=== PATIENT | female | born 1985 | race Caucasian/White ===

== ENCOUNTER 2016-12-16 14:16 | Inpatient (IN) | payer SELFPAY ==
[~2016-12-16] VITALS: Ht 157.5 cm; Wt 61.0 kg
[2016-12-16] MEDS ORDERED: ACETAMINOPHEN 325MG TABLET PO STA (16:46)
[2016-12-16] MEDS ORDERED: SODIUM CHLORIDE 0.9% 1,000 ML IV ONE (16:46)
[2016-12-16 17:15] LABS: CHLORIDE 99 mEq/L (98-107)
[2016-12-16 17:16] LABS: BASOPHILS % 0.3 % (0.0-2.0); HEMATOCRIT. 33.7 % (36.0-48.0); LYMPHOCYTES % 7.7 % (20.0-50.0); MEAN CORPUSCULAR HEMOGLOBIN 24.9 pg (28.0-32.0); MEAN CORPUSCULAR VOLUME 76.2 fL (81.0-99.0); MEAN PLATELET VOLUME 7.6 fl (7.4-10.4); MONOCYTES % 8.3 % (2.0-8.0); NEUTROPHILS % 83.7 % (40.0-76.0); PLATELET 264 x1000/uL (130-400); RED BLOOD CELL COUNT 4.43 mill/uL (4.2-5.4)
[2016-12-16 17:18] LABS: CARBON DIOXIDE 25 mEq/L (21-32); PROTHROMBIN TIME 10.7 sec
[2016-12-16 17:19] LABS: HCG SCREEN POSITIVE
[2016-12-16 18:07] LABS: CLARITY URINE CLEAR (CLEAR); COLOR URINE YELLOW (YELLOW); GLUCOSE URINE NEGATIVE (NEGATIVE); KETONES URINE 4+ (NEGATIVE); LEUKOCYTE ESTERASE URINE TRACE (NEGATIVE); NITRITE URINE NEGATIVE (NEGATIVE); OCCULT BLOOD URINE 1+ (NEGATIVE); PH URINE 8.5 (4.5-8.0); PROTEIN URINE 1+ (NEGATIVE); SPECIFIC GRAVITY URINE 1.016 (1.005-1.030)
[2016-12-16] MEDS ORDERED: CEFTRIAXONE 1 G PREMIX 50 ML IV ONE (19:15)
[2016-12-16] MEDS ORDERED: POTASSIUM CHLORIDE 20MEQ TABLET SR PO ONE (21:15)
[2016-12-17] MEDS ORDERED: DIPHENHYDRAMINE 25MG CAPSULE PO PRN
[2016-12-17] MEDS ORDERED: HYDROMORPHONE HCL/PF 2MG/ML CPJ IV ONE ×2
[2016-12-17] MEDS ORDERED: ONDANSETRON HCL 4MG/2ML VIAL IM SCH
[2016-12-17] MEDS ORDERED: ACETAMINOPHEN 500MG TABLET PO PRN
[2016-12-17] MEDS ORDERED: CEFAZOLIN 2,000 MG in DEXT 5% WATER 100 ML IV NR (03:42)
[2016-12-17 04:50] VITALS: BP 112/70
[2016-12-17] MEDS ORDERED: SODIUM CHL 0.45% + KCL 20MEQ/L 1,000 ML IV SCH ×2 (06:00)
[2016-12-17] MEDS: SODIUM CHLORIDE 0.9% 1,000 ML IV SCH ×3 (07:08→23:58)
[2016-12-17 07:10] VITALS: BP 109/67
[2016-12-17 07:34] LABS: HEPATITIS B SURFACE ANTIGEN NEGATIVE; RUBELLA IGG 145.5 IU/mL (4.99-10)
[2016-12-17 08:36] LABS: CHLORIDE 102 mEq/L (98-107)
[2016-12-17 08:38] LABS: BASOPHILS % 0.2 % (0.0-2.0); EOSINOPHILS % 0.1 % (0.0-5.0); HEMATOCRIT. 29.5 % (36.0-48.0); HEMOGLOBIN. 9.6 g/dL (12.0-16.0); LYMPHOCYTES % 11.3 % (20.0-50.0); MEAN CORPUSCULAR VOLUME 76.7 fL (81.0-99.0); MONOCYTES % 11.4 % (2.0-8.0); PLATELET 226 x1000/uL (130-400); RED BLOOD CELL COUNT 3.84 mill/uL (4.2-5.4); RED CELL DISTRIBUTION WIDTH 18.3 % (11.6-14.6)
[2016-12-17 08:41] LABS: CARBON DIOXIDE 22 mEq/L (21-32)
[2016-12-17 08:54] LABS: *AMPHETAMINES SCREEN URINE NEGATIVE (NEGATIVE); *BARBITURATES SCREEN URINE NEGATIVE (NEGATIVE); *BENZODIAZEPINES SCREEN URINE NEGATIVE (NEGATIVE); *COCAINE SCREEN URINE NEGATIVE (NEGATIVE); CANNABINOID URINE SCREEN NEGATIVE (NEGATIVE); METHADONE URINE SCREEN NEGATIVE (NEGATIVE); OPIATES URINE SCREEN NEGATIVE (NEGATIVE); PHENCYCLIDINE URINE SCREEN NEGATIVE (NEGATIVE)
[2016-12-17] MEDS ORDERED: PRENATAL VIT/FE FUMARATE/FA TABLET PO SCH (09:00)
[2016-12-17] MEDS ORDERED: FERROUS SULFATE 325MG TABLET PO SCH (09:00)
[2016-12-17] MEDS ORDERED: ONDANSETRON HCL 4MG/2ML VIAL IM PRN (09:30)
[2016-12-17] MEDS: HYDROMORPHONE HCL/PF 2MG/ML CPJ IV PRN ×2 (09:47→19:57)
[2016-12-17] MEDS: ACETAMINOPHEN 500MG TABLET PO PRN ×2 (09:47→23:35)
[2016-12-17] MEDS: PRENATAL VIT/FE FUMARATE/FA TABLET PO SCH (09:55)
[2016-12-17] MEDS: FERROUS SULFATE 325MG TABLET PO SCH ×2 (09:56→17:59)
[2016-12-17 12:00] VITALS: BP 100/55
[2016-12-17] MEDS ORDERED: CEFAZOLIN 2,000 MG in DEXT 5% WATER 100 ML IV SCH ×3 (14:00)
[2016-12-17] MEDS: CEFAZOLIN 2,000 MG in DEXT 5% WATER 100 ML IV SCH ×2 (14:44→21:51)
[2016-12-17 16:00] VITALS: BP 98/59
[2016-12-17 19:55] VITALS: BP 114/68
[2016-12-17] MEDS ORDERED: DOCUSATE SODIUM 100MG CAPSULE PO SCH (21:00)
[2016-12-17 23:30] VITALS: BP 101/67
[2016-12-18 04:00] VITALS: BP 94/79
[2016-12-18] MEDS ORDERED: SODIUM CHLORIDE 0.9% 1,000 ML IV SCH (05:00)
[2016-12-18] MEDS: CEFAZOLIN 2,000 MG in DEXT 5% WATER 100 ML IV SCH (05:30)
[2016-12-18 07:45] VITALS: BP 98/58
[2016-12-18] MEDS: FERROUS SULFATE 325MG TABLET PO SCH (08:00)
[2016-12-18] MEDS: PRENATAL VIT/FE FUMARATE/FA TABLET PO SCH (08:00)
== END 2016-12-18 09:30 | disposition home or self-care (01) | DRG 566 ==
LOC: ER 16:00 → 7EST PP/OB 19:18 → EDBEDREQSVC 19:31 → EDBEDREQ 19:31 → CANRESERV 12-17 01:58 → ENRESERV 12-17 01:58 → ER 12-17 04:15 → CANBEDREQ 12-17 06:09
PROVIDERS: ADMIT Specialist; ATTEND Specialist
DX: O23.02 Infections of kidney in pregnancy, second trimester (principal); E87.1 Hypo-osmolality and hyponatremia; O99.012 Anemia complicating pregnancy, second trimester; N12 Tubulo-interstitial nephritis, not specified as acute or chronic; O99.282 Endocrine, nutritional and metabolic diseases complicating pregnancy, second trimester; D64.9 Anemia, unspecified; E87.6 Hypokalemia; Z3A.17 17 weeks gestation of pregnancy
CPT/HCPCS: 36415; 76805; 80048; 80053; 80305; 81001; 83605; 84703; 85025; 85610; 86592; 86703; 86762; 86850; 86900; 87040; 87086; 87340; 93005; 96365; 96375; 99285; J0690; J0696; J1170; J2405; J3480; J7030; J7042; J7060